=== PATIENT | female | born 1970 | race African-American/Black ===

== ENCOUNTER 2017-02-09 15:19 | Emergency (ER) | payer MEDICAID ==
[~2017-02-09] VITALS: Ht 165.1 cm; Wt 171.0 kg
[2017-02-09] MEDS ORDERED: HYDR25TA PO (15:23)
[2017-02-09] MEDS ORDERED: METO25 PO (15:24)
[2017-02-09] MEDS ORDERED: OMEP20 PO (15:24)
[2017-02-09] MEDS ORDERED: AMLO-511 PO (15:24)
[2017-02-09 17:58] VITALS: BP 151/99
== END 2017-02-09 18:03 | disposition home or self-care (01) ==
LOC: EMS 15:21
DX: M79.672 Pain in left foot (principal); K21.9 Gastro-esophageal reflux disease without esophagitis; I10 Essential (primary) hypertension
CPT/HCPCS: 99281